=== PATIENT | female | born 1970 | race Caucasian/White ===

== ENCOUNTER → 2021-03-27 16:07 | Outpatient (CLI) | payer SELFPAY ==
[2021-03-27 15:44] VITALS: BMI 32.5
[2021-03-29 09:50] LABS: Cancer Antigen 125 13.7 U/mL (0.0-38.1)
== END ==
PROVIDERS: PCP Family Medicine; Referring Provider Obstetrics & Gynecology; Visit Provider Obstetrics & Gynecology
DX: N83.201 Unspecified ovarian cyst, right side (principal)
CPT/HCPCS: 36415; 86304